=== PATIENT | female | born 1935 | race Asian ===

== ENCOUNTER 2018-08-31 13:58 | Emergency (ER) | payer OTHER, BC ==
[~2018-08-31] VITALS: Ht 162.6 cm; Wt 68.0 kg
[2018-08-31] MEDS ORDERED: NOHOMEMEDICATIONS (15:10)
[2018-08-31 15:26] LABS: ABSOLUTE NEUTROPHILS 2.6 thou/uL (1.4-8.2); BASOPHILS 0.8 % (0.0-2.0); EOSINOPHILS 0.8 % (0.0-3.0); HEMATOCRIT 38.7 % (37.0-47.0); HEMOGLOBIN 12.7 gm/dL (12.0-15.0); LYMPHOCYTES 37.7 % (24.0-44.0); MCH 30.1 pg (26.0-34.0); MCHC 32.8 g/dL (28.0-37.0); MCV 91.9 fL (80.0-100.0); MONOCYTES 9.1 % (1.0-8.0); PLATELET COUNT 221 thou/uL (150-400); POLYS 51.6 % (36.0-66.0); RBC 4.22 mil/uL (4.20-5.00); RDW 15.2 % (10.5-14.5); WBC 5.1 thou/uL (4.0-11.0)
[2018-08-31 15:28] LABS: ANION GAP 9 mmol/L (7-16); BUN 14 mg/dL (7-18); CALCIUM 9.3 mg/dL (8.5-10.1); CHLORIDE 107 mmol/L (98-107); CO2 29 mmol/L (21-32); CREATININE 0.9 mg/dL (0.6-1.0); GLUCOSE 92 mg/dL (74-106); POTASSIUM 3.7 mmol/L (3.5-5.1); SODIUM 145 mmol/L (136-145)
[2018-08-31 15:36] LABS: TROPONIN-I <0.06 ng/mL (<0.06)
[2018-08-31 16:50] VITALS: BP 167/80
--- NOTE | 2018-09-01 09:34 | EKG ---
[place] [address] [facility] [address] [place] [address] ELECTROCARDIOGRAM REPORT Name: KISHAN CERNA Room #: DEP DOMINICK Pires#: [id number] ������������������ Admission: 08/31/18 ������������������ Attend Phys: Discharge: 08/31/18 ������������������ Date of : 37 Report #: [id number] ����������������������������������������������������������������� [id number] THIS REPORT FOR: //name// [facility] ED Test Date: 2018-08-31 Test Time: 14:08:49 Pat Name: KISHAN CERNA Department: Room: Gender: F Clinical Case Manager: AUDRA : 1935 Requested By: Rita Quick Order Number: [id number] MD: Nicola London Measurements Intervals [place] Rate: 77 P: 265 WI: 167 QRS: 88 QRSD: 123 T: 268 QT: 451 QTc: 511 Interpretive Statements A-V dual-paced complexes w/ some inhibition No further analysis attempted due to paced rhythm No previous ECG available for comparison Electronically Signed On 09-01-2018 9:34:25 CDT by Nicola London [email or web address] ��������������������������������������������� <ELECTRONICALLY SIGNED> ���������������������������������������� By: Nicola London MD ��������������������������������������������� 09/01/18 0934 1408 [id number] Nicola London MD /DEE
== END 2018-08-31 16:50 | disposition home or self-care (01) ==
LOC: ER 13:58
PROVIDERS: Emergency Medicine
DX: R07.89 Other chest pain (principal); I10 Essential (primary) hypertension; Z88.8 Allergy status to other drugs, medicaments and biological substances; Z95.0 Presence of cardiac pacemaker; Z86.73 Personal history of transient ischemic attack (TIA), and cerebral infarction without residual deficits